=== PATIENT | male | born 1985 | race Caucasian/White ===

== ENCOUNTER 2017-09-21 17:24 | Emergency (ER) | payer OTHER, SELFPAY ==
[2017-09-21 17:25] VITALS: BP 125/70; PULSE 70; RESP 18; TEMP 36.2; O2SAT 98; BMI 27.1
[2017-09-21 17:43] VITALS: BP 118/70; PULSE 75; RESP 14; O2SAT 98
--- NOTE | 2017-09-21 18:01 | ED.VISSUMM ---
- ER Visit Summary Date of Service: 09/21/17 Chief Complaint: Left index finger laceration History of Present Illness: The patient is a 32 M presenting with left index finger laceration. Patient states he was at home using a saw and accidentally cut his left index finger. He is right-handed. He last tetanus is unknown. No other injuries. Physical Examination: Vitals are stable. Patient is afebrile. Alert no acute distress. HEENT exam is unremarkable. Lungs are clear and equal bilaterally. Heart is regular rate and rhythm. Extremities left index finger: Finger pad skin avulsion, tendon function is normal, normal cap refill, normal sensation Skin is warm and dry. No focal neurologic deficit. Remainder of exam is unremarkable. Emergency Department Course and Treatment: He was given tetanus IM. Wound was copiously irrigated. The skin avulsion is not amenable to suturing. Dressing was applied. Wound care was discussed. Advised to return to ED for worsening symptoms. Advised to follow-up with primary care physician. Disposition: Discharge home Impression: Left index finger skin avulsion This note was generated with [employer] dictation software. It may contain incorrect words, spelling, and punctuation that were not noted in review of the chart prior to signing ED Disposition - Plan for ED Patient: Chief Complaint: Laceration Referrals: Felicity Dewey DO [STAFF PHYSICIAN] -
[2017-09-21] MEDS: Diphth,Pertuss(Acell),Tet Vac 0.5 ML Vial IM (18:14)
--- NOTE | 2017-09-21 18:29 | ED.DEP ---
ED Disposition - Plan for ED Patient: Chief Complaint: Laceration Instructions: ED Laceration Hand Referrals: Felicity Dewey DO [STAFF PHYSICIAN] -
== END 2017-09-21 18:40 | disposition home or self-care (01) ==
PROVIDERS: Emergency Provider Emergency Medicine; Family Provider Family Medicine; PCP Family Medicine
DX: S61.201A Unspecified open wound of left index finger without damage to nail, initial encounter (principal); Z23 Encounter for immunization; W29.3XXA Contact with powered garden and outdoor hand tools and machinery, initial encounter; Y93.89 Activity, other specified; Y92.009 Unspecified place in unspecified non-institutional (private) residence as the place of occurrence of the external cause; Y99.8 Other external cause status
CPT/HCPCS: 90471; 90715; 99284

== ENCOUNTER 2018-12-15 09:01 | Emergency (ER) | payer OTHER, SELFPAY ==
[2018-12-15 09:02] VITALS: BP 120/67; PULSE 75; RESP 18; TEMP 36.4; O2SAT 98; BMI 27.1
--- NOTE | 2018-12-15 09:26 | RAD_ITS ---
STUDY: X-RAY - LEFT KNEE REASON FOR EXAM: Male, 33 years old. Anterior knee pain following a fall. TECHNIQUE: 4 view(s) of the knee. COMPARISON: None. FINDINGS: 2 osteochondromas are seen in the medial aspect of the distal femoral diaphysis and metaphysis. Normal visualized proximal tibia and fibula. Normal proximal tibiofibular articulation. Normal medial femorotibial compartment. Normal lateral femorotibial compartment. Normal patellofemoral articulation. Small joint effusion. RAD/Knee 4 or More Views IMPRESSION: Small joint effusion. 2. Osteochondroma seen in the medial aspect of the distal femoral diaphysis and metaphysis. Electronically Signed: Khoa Helms, at 9:53 EDT , Service support ,
--- NOTE | 2018-12-15 09:30 | ED.VIS.GEN ---
History of Present Illness Chief Complaint: Lower Extremity Injury Informant: Patient Onset: Yesterday Current Severity: Mild Narrative: Patient presents with left knee pain indicates yesterday he was waking from a sleep he inadvertently stumbled striking his left knee on the floor at home, he woke today with persistent pain over the lateral aspect of the left upper knee, no numbness weakness paresthesias walk with slight limp no history of injury that extremity other complaints Past Medical History - Allergies and Home Meds Allergies/Adverse Reactions: Allergies No Known Allergies Allergy (Verified 12/15/18 09:04) Primary Care Physician: Martínez Teague MD [Primary Care Provider] - Past Medical History: None Smoking Status: Never smoker Review of Systems General: Denies: Chills, Fever, Sweats Eyes: Denies: Visual changes - bilaterally, Diplopia ENT: Denies: Rhinorrhea, Sore throat Cardiovascular: Denies: Chest pain, Palpitations Respiratory: Denies: Dyspnea, Cough, Dyspnea on exertion Gastrointestinal: Denies: Abdominal pain, Nausea, Vomiting, Diarrhea, Melena, Hematochezia Genitourinary: Denies: Dysuria, Hematuria, Frequency Musculoskeletal: Denies: Back pain, Extremity Pain Skin: Denies: Rash, Wounds Neurological: Denies: Headache, Weakness, Numbness Physical Exam Vital Signs/Narrative: Vital Signs Temp Pulse Resp BP Pulse Ox 12/15/18 09:02 97.6 F L 75 18 120/67 98 Extremities: Tenderness, - - He has tenderness over the medial aspect of the left knee there is no instability deformity the hip thigh tib-fib ankle unremarkable patellas in good position flexion-extension is intact and normal Diagnostic/Tx/Re-eval - Medical Decision Making Given his complaints x-rays were obtained These are generally unremarkable acute fracture, osteomalacia, small joint effusion, see the radiologist report, expecting the concept of occult injury crutches Naprosyn ice for pain he will follow-up with orthopedics 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 Powell and return for change in symptoms Home stable Final impression Acute left knee injury ED Disposition - Plan for ED Patient: Diagnosis: Knee effusion, left, Knee injuries Instructions: Knee Sprain Prescriptions: Naproxen [Naprosyn] 500 mg PO BID PRN #20 tab Prescription Printed Referrals: Martínez Teague MD [Primary Care Provider] - Issac Powell MD [STAFF PHYSICIAN] -
[2018-12-15] MEDS: Naproxen 500 MG Tablet PO (09:39)
[2018-12-15 10:45] VITALS: PULSE 81; RESP 16; O2SAT 100
--- NOTE | 2018-12-15 10:45 | ED.RN ---
PT DECLINED CRUTCHES. STATES WE HAVE SOME AT HOME
--- NOTE | 2018-12-15 10:45 | ED.RN ---
THIS NURSE REVIEWED D/C INSTRUCTIONS WITH PT AND VISITOR. PT VERBALIZED UNDERSTANDING OF INSTRUCTIONS. PT DENIES FURTHER NEEDS OR QUESTIONS AT THIS TIME. PT AMBULATES FROM ROOM ON OWN WITHOUT ASSISTANCE FROM STAFF
== END 2018-12-15 10:46 | disposition home or self-care (01) ==
LOC: ED 09:58
PROVIDERS: Emergency Provider Emergency Medicine; Family Provider Family Medicine; PCP Family Medicine
DX: M25.462 Effusion, left knee (principal); S89.92XA Unspecified injury of left lower leg, initial encounter; W01.0XXA Fall on same level from slipping, tripping and stumbling without subsequent striking against object, initial encounter; Y93.01 Activity, walking, marching and hiking; Y92.009 Unspecified place in unspecified non-institutional (private) residence as the place of occurrence of the external cause; Y99.8 Other external cause status
CPT/HCPCS: 73564; 99283

== ENCOUNTER → 2020-03-09 09:15 | Outpatient (CLI) | payer OTHER, SELFPAY ==
[2020-03-09 09:19] LABS: Mucous, Urine 0 SEEN /hpf (<or=2+); Red Blood Cells-Urine 0 SEEN /hpf (0-5); Squamous Epithelial Cells - UA 0 SEEN /hpf (0-5)
[2020-03-09 12:43] LABS: Absolute Lymphocyte Count 1.15 X10^3/uL (0.83-4.51); Absolute Neutrophil Count 2.2 X10^3/uL (2.0-7.7); Basophil# 0.04 X10^3/uL; Eosinophils% 2.6 % (0-5); Hematocrit 48.8 % (40-54); Hemoglobin 16.2 g/dL (13.0-16.5); Lymphocyte # 1.15 X10^3/ul (4.0); Mean Corp Hgb Conc 33.2 g/dL (32-36); Mean Corpuscular Hgb 28.8 pg (27.0-32.0); Mean Corpuscular Volume 86.7 fL (80-94); Mean Platelet Vol. 9.4 fl (6.2-12.0); Monocyte# 0.31 X10^3/uL; Monocyte% 8.1 % (0-10); NRBC Flagged by Analyzer 0 % (0-5); Neutrophil # 2.22 X10^3/uL (2.7-7.7); Platelet Count 282 K/mm3 (150-450); RBC Distribution Width SD 38.6 fl (35.1-43.9); Red Blood Count 5.63 M/mm3 (4.6-6.2); White Blood Count 3.8 K/mm3 (4.4-11.0)
[2020-03-09 13:01] LABS: Color, Urine Straw (Yellow); Glucose, Dipstick Normal (Normal); Ketone-Dipstick Negative (Negative); Leukocyte Esterase-Dipstick 25 /ul (Negative); Nitrite-Dipstick Negative (Negative); Occult Blood-Urine Negative /ul (Negative); Protein-Dipstick Negative (Negative); Urine Bilirubin Dipstick Negative (Negative); Urine Clarity Clear (Clear); Urine Urobilinogen Normal (Normal); Urine pH 6.5 (5.0 - 8.0)
[2020-03-09 13:10] LABS: Bacteria RARE /hpf (None Seen); White Blood Cells 0-5 SEEN /hpf (0-5)
[2020-03-09 13:23] LABS: ALB/GLOB Ratio 1.1 RATIO (0.9-2.4); AST(SGOT) 17 U/L (15-37); Alanine Aminotransfer ALT/SGPT 23 U/L (16-61); Albumin, Serum 3.8 g/dL (3.2-5.0); Alkaline Phosphatase 64 U/L (45-117); Anion Gap 6 (5-15); BUN 13 mg/dL (7-18); BUN/Creat Ratio 12.6 RATIO (10-20); Calcium,Total 8.9 mg/dL (8.5-10.1); Chloride 106 mmol/L (98-107); Cholesterol 213 mg/dL (200); Creatinine, Serum 1.03 mg/dL (0.70-1.30); EST Glomerular Filtration Rate 86 mL/min (>60); Est Glom Filt Rate - Afr Amer 105 mL/min (>60); Globulin 3.4 g/dL (2.2-4.2); Glucose 91 mg/dL (74-106); High Density Lipoprotein 57 mg/dL; Protein, Total 7.2 g/dL (6.4-8.2); Sodium Level 140 mmol/L (136-145); Triglycerides 68 mg/dL; Very Low Density Lipoprotein 14 mg/dL (5-40)
== END ==
PROVIDERS: PCP Family Medicine; Visit Provider Family Medicine
DX: Z00.00 Encounter for general adult medical examination without abnormal findings (principal); R31.9 Hematuria, unspecified
CPT/HCPCS: 36415; 80053; 80061; 81001; 85025

== ENCOUNTER 2021-02-17 08:49 | Emergency (ER) | payer OTHER, SELFPAY ==
[2021-02-17 08:49] VITALS: BP 141/84; PULSE 81; RESP 16; TEMP 36.4; O2SAT 98; BMI 25.7
--- NOTE | 2021-02-17 09:06 | RAD_ITS ---
STUDY: X-RAY - LEFT SHOULDER REASON FOR EXAM: Male, 36 years old. injury TECHNIQUE: 4 view(s) of the shoulder. COMPARISON: None. FINDINGS: Left proximal humeral bone lesion with cortical expansion/remodeling and bony protuberance. Protuberance emanating from the lateral aspect proximal humeral cortex measuring approximately 6.3 cm x 2.8 cm. No acute fracture. No acute dislocation. No acute cortical destruction. Mild glenohumeral joint arthrosis. Normal acromioclavicular joint. Mild soft tissue swelling. RAD/Shoulder min 2 Views IMPRESSION: No acute fracture or dislocation Mild soft tissue swelling Mild glenohumeral arthrosis Left proximal humerus bone bone lesion with cortical expansion/remodeling and bony protuberance (nonemergent MRI can be obtained for further characterization) N.B. : The above Results were Read Back by Earnest Mora DO to Ilir Romero MD, and understanding confirmed on 02/17/2021 09:51:51 (ET). Electronically Signed: Earnest Mora DO at 9:53 EDT Tel , Service support ,
--- NOTE | 2021-02-17 09:06 | EX.ED.UPPERE ---
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 Patient states that the clinical trainer kind of fell off the reagan and compressed his right shoulder against the ground but hit him onto the left shoulder. He complains of discomfort and soreness in the arm. Patient also states that he got the first Covid vaccine in the same arm yesterday and is not sure if some of the soreness is related to that. Patient denies any other injuries. PFSH PFS Home Medications naproxen 500 mg PO BID PRN #20 tab 12/15/18 [Rx Last Taken Unknown] Allergy/AdvReac Type Severity Reaction Status Date / Time No Known Allergies Allergy Verified 02/17/21 08:51 Social History Smoking Status: Never smoker ROS ROS ED Constitutional Constitutional ED: Reports systems reviewed and no addt'l complaints, except as documented; Denies body ache(s), change in weight or chills Eyes Eyes: Denies acute decrease in peripheral vision, change in vision, double vision or loss of vision ENT ENT ED: Reports none; Denies ear pain, lip swelling, loss taste/smell, neck pain, otalgia or sore throat Cardiovascular Cardiovascular: Reports none; Denies abdominal pain, chest pain with activity, leg edema, lightheadedness, palpitations, rapid heart rate or syncope Respiratory/Chest Respiratory/Chest: Reports none; Denies change in mental status, dry cough, dyspnea, hemoptysis, shortness of breath at rest or shortness of breath with exertion Gastrointestinal Gastrointestinal: Reports none; Denies abdominal pain, change in stool character, diarrhea, hematemesis, hematochezia, melena, rectal bleeding or vomiting Genitourinary Genitourinary ED: Reports none; Denies abdominal discomfort, anuria, dysuria, genital pain or polyuria Musculoskeletal Musculoskeletal: Reports none and other Details: Left shoulder pain ; Denies arthralgias, back pain, difficulty walking, extremity pain, muscle weakness or myalgias Integumentary Reports none; Denies abscess or rash Neurologic Neurologic: Reports none; Denies abnormal gait, confusion, focal weakness, frequent falls, headache(s), loss of vision, numbness, paresthesias, radicular pain, vertigo or weakness Psychiatric Psychiatric: Reports systems reviewed and no addt'l complaints, except as documented and none; Denies behavioral changes, confusion, difficulty concentrating, hallucinations, suicidal ideation, tactile hallucinations or visual hallucinations Endocrine Endocrinology: Denies none, cold intolerance, excessive sweating, fatigue or heat intolerance Hematologic/Lymphatic Hematologic/Lymphatic: Reports none; Denies anemia, easy bleeding or easy bruising Allergic/Immunologic Allergic/Immunologic ED: Denies as per HPI, none, lip swelling, mouth swelling, throat swelling, tongue swelling or hives EXAM Physical Exam Const Vital Signs: 02/17/21 08:49 Temperature 97.5 F L Temperature Source Temporal Pulse Rate 81 Respiratory Rate 16 Blood Pressure 141/84 H Blood Pressure Mean 103 Pulse Ox 98 Oxygen Delivery Method Room Air Positive well nourished and well developed General Appearance ED: well developed and NAD HEENT Reports TM's clear and moist mucous membranes normocephalic and atraumatic; Negative for trauma or tenderness Tympanic Membrane ED: Yes TM's clear Eyes PERRL and EOMs intact bilaterally General Eye ED: Negative for pale conjunctiva or scleral icterus Neck no lymphadenopathy, supple and no JVD General: Negative for tenderness Chest Wall inspection of chest normal and palpation of chest normal Chest: Negative for tenderness Resp normal respiratory effort and clear to auscultation bilaterally Effort and Inspection: Negative for respiratory distress or pain with movement Auscultation: Negative for rhonchi, wheezes or diminished lung sounds Cardio regular rate, regular rhythm, S1 normal heart sound, S2 normal heart sound and no murmurs Peripheral Pulses: pulses 2+ throughout GI normal to inspection, nondistended, normoactive bowel sounds, soft to palpation, non-tender, non-distended and no masses Back/Spine no CVA tenderness and no thoracic nor lumbar tenderness Extremity Extremity Narrative: Evaluation of the left shoulder does reveal a Band-Aid over the left deltoid from recent immunization. Patient has diffuse tenderness palpation over the distal clavicle and glenohumeral joint. Patient has no evidence of deformity and no sulcus sign noted. Patient has pain with range of motion. Neurovascular intact distally. There is no ecchymosis or bruising noted. No significant swelling noted. General Extremety ED: Yes edema General Extremity: edema Neuro oriented x3, CN's II-XII intact bilaterally, no sensory deficits noted and gait normal Sensorium / Orientation: awake, alert, oriented to person, oriented to place and oriented to time Motor Exam: strength 5/5 throughout and strength abnormal Psych mental status grossly normal Skin no rashes or lesions noted and no wounds MDM MDM MDM Narrative Medical decision making narrative: X-ray of the left shoulder obtained showed a bony lesion of the proximal humerus which radiologist called about and thought its likely benign but recommended obtaining an outpatient MRI to further evaluate. Patient has not had trauma to that arm in the past. At this point he will be given a sling. He did not want thing for pain for home. He will follow up with his primary care physician regarding the bony lesion. I suspect patient likely has a contusion of the shoulder however cannot rule out internal derangement. Radiography Diagnostic Testin view x-rays of left shoulder obtained interpreted by myself as abnormal bony lesion of proximal humerus. Radiologist in agreement. Discharge Plan Triage Chief Complaint: Upper Extremity Injury ED Provider: Ilir Romero Dx/Rx/DC Orders Clinical Impression: Contusion of left shoulder, Sprain of left shoulder joint Instructions: ED Shoulder Sprain, ED Shoulder Contusion Prescriptions: No Action naproxen 500 MG tablet 500 mg PO BID PRN Qty: 20 RF: 0 Primary Care Provider: Olivier Rodriguez Referrals: Olivier Rodriguez DO [Primary Care Provider] - Activity Restrictions/Additional Instructions: Follow-up with your family doctor to obtain an MRI of the left upper arm to evaluate the bony lesion seen on your x-ray Disposition Disposition: Home, Self Care
== END 2021-02-17 10:22 | disposition home or self-care (01) ==
PROVIDERS: Emergency Provider Emergency Medicine; PCP Family Medicine
DX: S40.012A Contusion of left shoulder, initial encounter (principal); S43.402A Unspecified sprain of left shoulder joint, initial encounter; X58.XXXA Exposure to other specified factors, initial encounter
CPT/HCPCS: 73030; 99283

== ENCOUNTER → 2021-03-08 16:21 | Outpatient (CLI) | payer OTHER, SELFPAY ==
--- NOTE | 2021-03-08 16:25 | MRI_ITS ---
STUDY: MRI UPPER EXTREMITY LEFT HUMERUS WITHOUT CONTRAST REASON FOR EXAM: Left shoulder injury 2 weeks ago, bone lesions of the humerus on radiographs. TECHNIQUE: Standardized fat and water weighted pulse sequences were obtained in all 3 orthogonal planes. COMPARISON: Radiographs 02/17/2021. FINDINGS: Normal subcutis adipose space. There is no demonstrated solid, cystic, or lipomatous mass within the subcutaneous adipose space. Normal visualized muscles and fascia. Normal visualized neurovascular bundles. There are osteochondromas of the medial and lateral aspects of the proximal/mid humeral diaphysis, the medial osteochondroma is sessile and the lateral osteochondroma is pedunculated (T1 axial images 11-23; T1 coronal images 8-17). There is no cartilage cap of either osteochondroma or adventitial bursitis. MRI/Upper Ext/No Jt/ wo IMPRESSION: Osteochondromas of the medial and lateral aspects of the humerus. Electronically Signed: Ayo Hui MD at 10:50 EDT Tel , Service support ,
== END ==
PROVIDERS: PCP Family Medicine; Referring Provider Family Medicine; Visit Provider Family Medicine
DX: M84.822 Other disorders of continuity of bone, left humerus (principal)
CPT/HCPCS: 73218

== ENCOUNTER 2021-08-25 12:02 | Outpatient (CLI) | payer OTHER, SELFPAY | END 2021-08-25 23:59 | disposition home or self-care (01) | LOC: LABSPEC 12:04 | PROVIDERS: PCP Family Medicine; Referring Provider Physician Assistant Surgical; Visit Provider Physician Assistant Surgical | DX: N39.0 Urinary tract infection, site not specified (principal) | CPT/HCPCS: 87086 ==

== ENCOUNTER → 2022-11-27 | Outpatient (CLI) | payer OTHER, SELFPAY ==
[2022-11-27 15:38] LABS: Absolute Lymphocyte Count 1.27 X10^3/uL (0.83-4.51); Absolute Neutrophil Count 2.6 X10^3/uL (2.0-7.7); Basophil# 0.04 X10^3/uL; Basophil% 0.9 % (0-1); Eosinophil# 0.13 X10^3/uL; Eosinophils% 2.9 % (0-5); Hematocrit 49.1 % (40-54); Hemoglobin 16.4 g/dL (13.0-16.5); Lymphocyte # 1.27 X10^3/ul (0.83-4.51); Lymphocyte % 28.8 % (19-41); Mean Corp Hgb Conc 33.4 g/dL (32-36); Mean Corpuscular Hgb 29.2 pg (27.0-32.0); Mean Corpuscular Volume 87.5 fL (80-94); Mean Platelet Vol. 9.2 fl (6.2-12.0); Monocyte# 0.39 X10^3/uL; Monocyte% 8.8 % (0-10); NRBC Flagged by Analyzer 0 % (0-5); Neutrophil # 2.57 X10^3/uL (2.7-7.7); Neutrophil % 58.4 % (47-70); Platelet Count 299 K/mm3 (150-450); RBC Distribution Width CV 12.5 % (11.6-14.6); RBC Distribution Width SD 39.8 fl (35.1-43.9); Red Blood Count 5.61 M/mm3 (4.6-6.2); White Blood Count 4.4 K/mm3 (4.4-11.0)
[2022-11-27 15:55] LABS: Hemoglobin A1c 5.2 % (3.8-5.6)
[2022-11-27 15:58] LABS: ALB/GLOB Ratio 1.1 RATIO (0.9-2.4); AST(SGOT) 23 U/L (15-37); Alanine Aminotransfer ALT/SGPT 31 U/L (16-61); Albumin, Serum 3.9 g/dL (3.2-5.0); Alkaline Phosphatase 73 U/L (45-117); Anion Gap 6 (5-15); BUN 13 mg/dL (7-18); BUN/Creat Ratio 13.2 RATIO (10-20); Calcium,Total 9.1 mg/dL (8.5-10.1); Chloride 106 mmol/L (98-107); Cholesterol 231 mg/dL (200); Creatinine, Serum 0.98 mg/dL (0.70-1.30); EST Glomerular Filtration Rate 90 mL/min (>60); Est Glom Filt Rate - Afr Amer 108 mL/min (>60); Globulin 3.4 g/dL (2.2-4.2); Glucose 90 mg/dL (74-106); High Density Lipoprotein 60 mg/dL; Potassium 4.3 mmol/L (3.5-5.1); Protein, Total 7.3 g/dL (6.4-8.2); Sodium Level 139 mmol/L (136-145); T4 Free Direct 1.05 ng/dL (0.76-1.46); Thyroid Stim Hormone (TSH) 1.49 uIU/mL (0.358-3.74); Triglycerides 57 mg/dL; Very Low Density Lipoprotein 11 mg/dL (5-40)
== END | disposition home or self-care (01) ==
LOC: BFHLAB 11:10
PROVIDERS: PCP Family Medicine; Referring Provider Family Medicine; Visit Provider Family Medicine
DX: Z00.00 Encounter for general adult medical examination without abnormal findings (principal); R53.83 Other fatigue
CPT/HCPCS: 36415; 80053; 80061; 83036; 84439; 84443; 85025

== ENCOUNTER → 2023-02-08 | Outpatient (CLI) | payer OTHER, SELFPAY ==
[2023-02-08 15:54] LABS: Cholesterol 222 mg/dL (200); High Density Lipoprotein 57 mg/dL; Triglycerides 70 mg/dL; Very Low Density Lipoprotein 14 mg/dL (5-40)
== END | disposition home or self-care (01) ==
LOC: BFHLAB 11:43
PROVIDERS: PCP Family Medicine; Referring Provider Family Medicine; Visit Provider Family Medicine
DX: E78.5 Hyperlipidemia, unspecified (principal)
CPT/HCPCS: 36415; 80061

== ENCOUNTER 2023-02-20 11:00 | Outpatient (RCR) | payer OTHER, SELFPAY ==
--- NOTE | 2023-02-11 08:46 | HP.PTEVAL ---
Patient's Visit Information Visit Information Visit Information: CLIVE TRAN is a 38 year old M referred to Physical Therapy by Dr. Olivier Rodriguez DO with a diagnosis of BPPV. Date of Evaluation: 02/11/23 Physical Therapist: Earnest Brown, DPT, OCS, CSCS Visit Plan Frequency: 1-2x /Week Duration: 2-4 Weeks Plan: 1-2x/week as needed for 2-4 weeks for 1. positonal ex and treatments as needed. Next session check L HD Subjective Subjective: Been having dizzyness, constant pressure in head. certain actions make it worse(looking to L and leaning back makes room spin for a few minutes.) Heat seems to make it worse. this has been happening since spring insidiously. It is worsening. 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 Lying down at night gets it consistently for a 15 minutes or less. Feels pretty normal in between but feels groggy much of time in head. has not had any testing. Blood work was done and was OK. 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 has to take his time at work. Seems to be when he is focussed or looking up. Hobbies include farming and can do this but again has to be slow. No balance deficits. Objective Objective: Walks into PT I and safely. transfers bed and chair I. Steps reciprocal without rail. Cervical AROM WFL and without pain. UE AROM WFL. R HD - L HD + for up torsional nystagmus of 8 second duration. Treated with L hallie and then - HD test. Balance/Special Test Scores Dizziness Score: 34 Goals Goal 1:: Bed mobility without dizzyness Goal Time Frame: 2-4 Weeks Goal 2:: Pt feel 100% back to normal at work and home Goal Time Frame: 2-4 Weeks Rehabilitation Potential Physical Therapy Diagnosis: BPPV L post canal Rehabilitation Potential: Good Anticipated Interventions Patient/Client Instruction: Educate patient on: Condition and Plan of Care For the Purpose of:: To increase tolerance to activity/condition/position Comment: positional [id number] ex/maneuvers For the Purpose of:: To increase tolerance to activity/condition/position Text: Thank you for the opportunity to evaluate your patient. For Medicare and Medicare HMO plans, please review the plan of care and approve it. It will need to be FAXED BACK to us at [phone] for Medicare purposes. For Medicare only, by signing this I certify the plan of care. Please let me know if there are questions or concerns regarding this plan of care. Physician Signature: Date:
--- NOTE | 2023-04-30 10:23 | HP.PT.NRP ---
Patient Information Patient Information: CLIVE TRAN was seen in my office for initial evaluation on 02/11/23. The following Plan of Care was established for this patient: POC Established Initial Frequency: 1-2x /Week Initial Duration: 2-4 Weeks Anticipated Interventions Patient/Client Instruction: Educate patient on: Condition and Plan of Care For the Purpose of:: To increase tolerance to activity/condition/position For the Purpose of:: To increase tolerance to activity/condition/position Last Seen Last Seen: This patient was last seen in our office 02/20/23. Pertinent comments regarding their Physical therapy will appear below: Pt seen two visits of positional treatments but did not attend 3rd or subsequent follow ups. At this point, it has been over 2 months and I will discontinue due to nonattendance. At this point I will be discontinuing this patient from physical therapy. I would be happy to see this patient again in the future if found appropriate by the physician. Thank you! Earnest Brown, DPT, OCS, CSCS Balance/Gait/Functional tests Balance/Special Test Scores Functional Gait Assessment Score: 30 % Disability: 0 Dizziness Score: 34
== END 2023-02-20 19:00 | disposition home or self-care (01) ==
LOC: PT 11:00
PROVIDERS: PCP Family Medicine; Referring Provider Family Medicine; Visit Provider Family Medicine
DX: H81.10 Benign paroxysmal vertigo, unspecified ear (principal)
CPT/HCPCS: 97161; 97530

== ENCOUNTER → 2024-03-05 | Outpatient (CLI) | payer OTHER, SELFPAY ==
--- NOTE | 2024-03-05 10:31 | MRI_ITS ---
STUDY: MRI BRAIN WITH AND WITHOUT CONTRAST REASON FOR EXAM: Male, 39 years old. HEADACHE, DIZZINESS TECHNIQUE: Standardized multiplanar fat and water weighted pulse sequences were obtained. 20cc clariscan was administered for the contrast portion of the examination. COMPARISON: None. FINDINGS: Normal size of the ventricles and extra-axial spaces for the patient''s age. Normal white matter tracts of the supratentorial brain. There is no evidence for recent intracranial ischemia or other cause of cytotoxic edema on diffusion weighted imaging (DWI). Normal T2* images of the brain without demonstrated susceptibility artifact. There is no demonstrated hemosiderin stain. Normal bilateral basal ganglia. Normal thalami. There is no extra-axial fluid accumulation. Normal flow voids within the major intracranial circulation suggesting patency by spin echo criteria. Normal venous enhancement. There is no enhancing intra-axial or extra-axial abnormality. Normal sella turcica, pituitary gland, infundibular stalk, optic chiasm and hypothalamus. Normal tectal plate and pineal gland. Normal midbrain, melany and medulla. Normal cerebellum. Normal basal cisterns. Normal bilateral temporal bones. Normal bilateral internal auditory canals. No demonstrated orbital abnormality, within the constraints of a routine brain study. Mucosal thickening in the left maxillary sinus consistent with chronic sinusitis. Normal calvarium and skull base. Normal visualized soft tissue structures. Normal visualized upper cervical spine. MRI/Brain W/WO Contrast IMPRESSION: Normal unenhanced and enhanced MRI of the brain. Chronic left maxillary sinusitis. Electronically Signed: Nuno Schneider MD at 22:33 EDT ,
== END | disposition home or self-care (01) ==
LOC: MRI 10:16
PROVIDERS: PCP Family Medicine; Referring Provider Family Medicine; Visit Provider Family Medicine
DX: R42 Dizziness and giddiness (principal); R51.9 Headache, unspecified
CPT/HCPCS: 70553; A9575